=== PATIENT | male | born 1985 | race American Indian/Alaskan Native ===

== ENCOUNTER 2017-10-20 21:36 | Emergency (ER) | payer OTHER ==
[2017-10-20 21:45] VITALS: BMI 25.8
[2017-10-20 21:49] VITALS: RESP 18; TEMP 98.3
--- NOTE | 2017-10-20 22:18 | ED PDOC ---
Arrival/HPI - General Chief Complaint: High Blood Pressure Time Seen by Provider: 10/20/17 21:52 Historian: Patient, Spouse - History of Present Illness Narrative History of Present Illness (Text): 10/20/17 22:19 Pt is a 32 year old male with no PMH who presents to the ED for a blood pressure check after being told by his clinic that he should get two more readings before being diagnosed with hypertension. Initial reading was 140/ 100 and then last reading at home was 122/88. In the ED, his reading is 138/93 but patient remains anxious about the findings. His , at bedside, states he has not had very much sleep in the last 48 hrs which might be the cause as he has never had blood pressure issues prior. Denies chest pain, shortness of breath, n/v/d, headache, change in vision, or any other complaints. 10/20/17 22:25 Time/Duration: < week Symptom Onset: Gradual Symptom Course: Improving Severity Level: 1 Activities at Onset: Rest Context: Home, Work Past Medical History - Provider Review Nursing Documentation Reviewed: Yes - Travel History Have you recently traveled outside [place] w/in the past 3 mons?: No - Past History Past History: No Previous - Infectious Disease Hx of Infectious Diseases: None - Psychiatric Hx Substance Use: No - Anesthesia Hx Anesthesia: No Hx Anesthesia Reactions: No Hx Malignant Hyperthermia: No Family/Social History - Physician Review Nursing Documentation Reviewed: Yes Family/Social History: Unknown Family HX Smoking Status: Never Smoked Hx Alcohol Use: No Hx Substance Use: No Allergies/Home Meds Allergies/Adverse Reactions: Allergies No Known Allergies Allergy (Verified 10/20/17 21:48) Home Medications: Home Meds Medication Instructions Recorded Confirmed No Known Home Med 10/20/17 10/20/17 Review of Systems - Review of Systems Constitutional: Normal Eyes: Normal ENT: Normal Respiratory: Normal Cardiovascular: Normal Gastrointestinal: Normal Genitourinary Male: Normal Musculoskeletal: Normal Skin: Normal Neurological: Normal Endocrine: Normal Hemo/Lymphatic: Normal Psychiatric: Normal Physical Exam Vital Signs Reviewed: Yes Vital Signs Temp Pulse Resp BP Pulse Ox 10/20/17 23:21 86 18 138/80 99 10/20/17 21:51 98 H 18 138/93 H 98 10/20/17 21:48 98.3 F 88 18 160/97 H 100 Temperature: Afebrile Blood Pressure: Hypertensive Pulse: Regular Respiratory Rate: Normal Appearance: Positive for: Well-Appearing, Non-Toxic, Comfortable Pain Distress: None Mental Status: Positive for: Alert and Oriented X 3 - Systems Exam Head: Present: Atraumatic, Normocephalic Pupils: Present: PERRL Extroacular Muscles: Present: EOMI Conjunctiva: Present: Normal Mouth: Present: Moist Mucous Membranes Neck: Present: Normal Range of Motion Respiratory/Chest: Present: Clear to Auscultation, Good Air Exchange. No: Respiratory Distress, Accessory Muscle Use Cardiovascular: Present: Regular Rate and Rhythm, Normal S1, S2. No: Murmurs Abdomen: Present: Normal Bowel Sounds. No: Tenderness, Distention, Peritoneal Signs Back: Present: Normal Inspection Upper Extremity: Present: Normal Inspection. No: Cyanosis, Edema Lower Extremity: Present: Normal Inspection. No: Edema Neurological: Present: GCS=15, CN II-XII Intact, Speech Normal Skin: Present: Warm, Dry, Normal Color. No: Rashes Psychiatric: Present: Alert, Oriented x 3, Normal Insight, Normal Concentration Medical Decision Making ED Course and Treatment: 10/20/17 22:24 Impression Pt is a 32 year old male with no PMH who presents to the ED for a blood pressure check after being told by his clinic that he should get two more readings before being diagnosed with hypertension. Plan ECG Assess and dispo 10/20/17 23:06 Pt resting comfortably in bed; ecg normal sinus rhythm with non-specific t-waves BP re-check: 138/80 Pt VSS and can be discharged home advised to follow up with PMD to monitor - Lab Interpretations I have reviewed the lab results: Yes - EKG Interpretation Interpreted by ED Physician: Yes (NSR, Rate 85 ) Disposition/Present on Arrival - Present on Arrival Any Indicators Present on Arrival: Yes History of DVT/PE: No History of Uncontrolled Diabetes: No Urinary Catheter: No History of Decub. Ulcer: No History Surgical Site Infection Following: None - Disposition Have Diagnosis and Disposition been Completed?: Yes Diagnosis: Blood pressure check Disposition: HOME/ ROUTINE Disposition Time: 23:32 Patient Plan: Discharge Patient Problems: Current Active Problems Problem Status Onset Blood pressure check Acute Condition: GOOD Discharge Instructions (ExitCare): Insomnia, High Blood Pressure in Adults Additional Instructions: Dear Patient, Given the following consecutive blood pressure readings, there is is no indication for hypertension medication at this time. 140/100 122/88 138/93 138/80 Please continue to follow a low sodium diet and get plenty of rest and fluids to maintain healthy blood pressure. Should you experience any alarming symptoms such as fever, chest pain, shortness of breath or headache, return to the emergency department for evaluation Follow up with your PMD in the next two days. Referrals: PCP,NO [Primary Care Provider] - Follow up with primary Forms: [employer] ([place]), WORK NOTE
[2017-10-20 23:22] VITALS: BP 138/80; PULSE 86; O2SAT 99
--- NOTE | 2017-10-21 09:35 | CARD ---
APPROVED REPORT EKG Measurement Heart [id number] <Conclusion> Normal sinus rhythm Nonspecific T wave abnormality Abnormal ECG
== END 2017-10-20 23:55 | disposition home or self-care (01) ==
LOC: ED 21:36
DX: Z01.30 Encounter for examination of blood pressure without abnormal findings (principal)